=== PATIENT | male | born 1985 | race Caucasian/White ===

== ENCOUNTER 2019-03-27 13:34 | Emergency (ER) | payer OTHER ==
[~2019-03-27] VITALS: Ht 190.5 cm; Wt 81.1 kg
[2019-03-27 14:27] LABS: BASOPHILS % (AUTO) 0.5 % (0-1); EOSINOPHILS % (AUTO) 0.5 % (0-6); LYMPHOCYTES # (AUTO) 2.1 X10'3 (1.1-4.8); MEAN CORPUSCULAR HEMOGLOBIN 31.7 PG (27.0-31.0); MEAN CORPUSCULAR HGB CONC 34.2 g/dL (33.0-36.5); MEAN CORPUSCULAR VOLUME 92.7 FL (78-98); MEAN PLATELET VOLUME 7.9 FL (7.4-10.4); MONOCYTES # (AUTO) 0.8 X10'3 (0-0.9); MONOCYTES % (AUTO) 8.6 % (2-12); NEUTROPHILS % (AUTO) 67.4 % (42-75); PLATELET COUNT 254 X10'3 (140-440); RED BLOOD COUNT 5.06 X10'6 (4.70-6.10); RED CELL DISTRIBUTION WIDTH 13.7 % (11.5-14.5)
[2019-03-27 14:52] LABS: ALANINE AMINOTRANSFERASE 17 U/L (12-78); ALBUMIN 4.2 G/DL (3.4-5.0); ALBUMIN/GLOBULIN RATIO 1.5 (1.1-1.5); ALKALINE PHOSPHATASE 90 IU/L (46-116); ANION GAP 5 (8-16); ASPARTATE AMINO TRANSFERASE 26 U/L (10-37); BILIRUBIN,TOTAL 0.3 MG/DL (0.1-1.0); BLOOD UREA NITROGEN 13 MG/DL (7-18); BUN/CREATININE RATIO 13.5 (5.4-32.0); CALCIUM 8.8 MG/DL (8.5-10.1); CHLORIDE 107 MMOL/L (99-107); CREATININE 0.96 MG/DL (0.60-1.10); GLUCOSE 83 MG/DL (70-104); POTASSIUM 3.7 MMOL/L (3.5-5.1); SODIUM 144 MMOL/L (135-145); TOTAL CARBON DIOXIDE 32.1 MMOL/L (24-32); eGFR 89 ML/MIN
[2019-03-27 14:54] LABS: CLARITY,URINE CLOUDY (Clear); COLOR,URINE STRAW (Yellow); GLUCOSE, URINE NEGATIVE (Neg); KETONES,URINE NEGATIVE (Neg); LEUKOCYTE ESTERASE ,URINE NEGATIVE (Neg); NITRITES, URINE NEGATIVE (Neg); OCCULT BLOOD,URINE NEGATIVE (Neg); PH,URINE 8.5 (4.8-8.0); PROTEIN,URINE NEGATIVE (Neg)
[2019-03-27 15:00] LABS: UA COLLECTION TYPE CLN CATCH MIDSTREAM
[2019-03-27 15:00] LABS: ETHANOL < 0.010 GM/DL (0.0-0.010)
[2019-03-27 15:02] LABS: AMORPHOUS PHOSPHATES 3+; BACTERIA,URINE NONE SEEN /HPF (Neg); MUCUS STRANDS NONE SEEN /LPF (Neg); RBC,URINE 0-2 /HPF (0-2); SPERM FEW /HPF (NEGATIVE); SQUAMOUS EPITHELIAL CELL,UR NONE SEEN /LPF (FEW); WBC,URINE 0-4 /HPF (0-4)
[2019-03-27 15:04] LABS: ACETAMINOPHEN < 2.0 UG/ML (10-30)
[2019-03-27 15:26] LABS: URINE AMPHETAMINE SCREEN NEGATIVE (Neg); URINE BARBITUATE SCREEN NEGATIVE (Neg); URINE BENZODIAZEPINES SCREEN NEGATIVE (Neg); URINE CANNABINOID SCREEN POSITIVE (Neg); URINE COCAINE SCREEN NEGATIVE (Neg); URINE METHADONE SCREEN NEGATIVE (Neg); URINE OPIATE SCREEN NEGATIVE (Neg); URINE PHENCYCLIDINE SCREEN NEGATIVE (Neg)
[2019-03-27] MEDS ORDERED: LORazepam 2 mg/ml vial IM ONE (15:40)
[2019-03-27] MEDS ORDERED: haloperidol lactate 5mg/ml inj IM ONE (15:40)
[2019-03-27] MEDS ORDERED: diphenhydrAMINE 50 mg/ml inj IM ONE (15:40)
--- NOTE | 2019-03-27 15:51 | NUR ---
2 TECH, 2 RN, 2 SAFETY OFFICERS NEED TO ADMIN IM MEDICATIONS. PT IS VERY HOSTILE TOWARDS STAFF.
--- NOTE | 2019-03-27 16:00 | NUR ---
PT IS FIGHTING WITH HIS MOM AND SAYING HE WANTS TO LEAVE
--- NOTE | 2019-03-27 17:00 | NUR ---
PT IS RESTING
--- NOTE | 2019-03-27 17:36 | NUR ---
PACKET SENT TO [facility].
--- NOTE | 2019-03-27 17:51 | NUR ---
PT IS CURRENTLY SLEEPING NO ISSUES AT THIS TIME
--- NOTE | 2019-03-27 18:23 | NUR ---
Pt sleeping in right side; breathing unlabored.
--- NOTE | 2019-03-27 19:59 | NUR ---
Pt awoke inquiring if food at bedside table was his; RN comfirmed, and pt stated "oh good, I am so hungry". RN brought pt fresh water and informed pt of assessment that would occur once pt finished eating. Pt verbalized understanding with a nod and "okay". Pt then states "They gave me Ativan but I'm allergic; it says I'm allergic to caffeine (points to dietary sheet) but that's not true." RN stated vitals were stable and pt is okay post Ativan adminstration, and that a little sleep seemed help his over all mood, since he was being aggressive earlier. Pt stated, "Yeah, I got testy." Then continues to eat.
--- NOTE | 2019-03-27 20:15 | NUR ---
[facility] evaluating pt for hold.
--- NOTE | 2019-03-27 20:30 | NUR ---
Pt is cooperative with 1:1 assessment. States he was brought in by his mother, after being denied care in fall, because "She gets on my nerves and was in my face. This causes me to have too much adrenaline and shizophrenic tendencies." Pt states he only takes Buspar and THC to manage his mental health; but in an arguement with his mother had decided to flush his buspar and lisinopril down the toilet. "So I haven't taken them in a while, since 03/20." Pt states Ativan is not a good drug for him, as "benzos make me feel too jittery and my heart race. I don't like them. That's why I got upset when they injected me earlier-- I was okay with Haldol and Benadryl but not Ativan. I just need to be spoken to like a normal person." Pt states he has been hospitlized 10 years ago but cannot recall the circumstances, and that he only ever felt SI when he witnessed his still born son, about 5 years ago. Pt states he uses bahai as a way to manage his emotions and keep moving in a positive direction. Pt jumped from topic to topic, without prompting, and took multiple redirection to ellicit an answer to the posed question. Pt denies A/VH, SI, anxiety, and depression. He is not presenting with any delusions or paranoias at this time. Pt stopped taking medications 10 years ago because he didn't like how they made him feel and prefers to manage his mood with Buspar and THC. Pts story is incongruent with presentation and report this RN recieved. Mood: "I'm fine."; Affect: Blunted; Behavior: Cooperative; Thought Process: Tangential; Thought Content: Wanting to go home to [place]. Insight: Poor MH Hx (per pt): ADHD, Bipolar, OCD, Tourette Syndrome, PTSD Multiple 5150s prior to 16 yo x1 psych hospitlization at 23 yo Social Hx: Mother (Yajaira, ), Father in [place] Pt states he has apt in [place] Currently needs to fix his car Recreational Drugs: THC, Nicotine Med Hx: Fernando's Esophagus, R Ankle Break in Nov 2018
[2019-03-27] MEDS ORDERED: BUSP10TA11 PO (21:37)
[2019-03-27] MEDS ORDERED: LISI-600 PO (21:37)
--- NOTE | 2019-03-27 22:23 | NUR ---
Pt sleeping on left side, no distress noted. Will continue to monitor.
--- NOTE | 2019-03-27 23:11 | NUR ---
Pt placed on 5150 at 2230 by [facility]. Addendum: 03/27/19 at 2316 by TRES Pt became slightly agitiated regarding learning he was being held, but with answering his questions and assuring we will not inject Ativan, he was able to calm down and go to sleep. RN explained reasoning behind him receiving Ativan earlier and educated that if he remains calm and cooperative those injections would not occur. Pt verbalized understanding.
--- NOTE | 2019-03-27 23:44 | NUR ---
Nurse [facility] [place] [place]. Patient case will be reviewed by their MD for possible acceptance. Patients primary RN will be updated when she returns from her lunch break.
--- NOTE | 2019-03-28 00:33 | NUR ---
Pt sleeping. No distress noted. Will continue to monitor.
--- NOTE | 2019-03-28 02:09 | NUR ---
Pt sleeping in supine position, no distress noted. Will continue to monitor.
--- NOTE | 2019-03-28 04:01 | NUR ---
Pt sleeping on right side. No distress noted.
[2019-03-28] MEDS: NICOTINE POLACRILEX 2 MG LOZENGE BC PRN ×5 (05:40→14:24)
--- NOTE | 2019-03-28 05:47 | NUR ---
Pt awoke requesting juice. Stated "I want to go outside for a smoke", RN offerred pt nicotine lozenge. Pt accepted and stated "I am not taking Ativan anymore." This RN reinforced that there would be no need to administer ativan if patient remains cooperative; pt verbalized understanding, said "Thanks" then went back to sleep on left side.
--- NOTE | 2019-03-28 06:37 | NUR ---
Pt is resting in bed peacefully in the supine position. No distress observed, will continue to monitor.
[2019-03-28] MEDS: busPIRone 5mg tablet PO SCH ×2 (08:00→08:27)
[2019-03-28] MEDS: lisinopril 10 MG tablet PO SCH ×2 (08:00→08:27)
--- NOTE | 2019-03-28 08:22 | NUR ---
Patient is sitting at edge of bed, eating breakfast, no distress observed. Requests a nicotine losenge.
--- NOTE | 2019-03-28 08:49 | NUR ---
Spoke to Crystal at [facility]. Patient has been accepted with an estimated pick up operator time in the afternoon. This was explained to patient. Patient verbalized understanding.
--- NOTE | 2019-03-28 09:51 | NUR ---
Patient is sitting in high fowlers reading the bible. No distress observed.
--- NOTE | 2019-03-28 10:43 | NUR ---
Patient requests to speak to a electric power machine operator. Called and LMOM for return call from electric power machine operator.
--- NOTE | 2019-03-28 11:05 | NUR ---
Cut Out Press Operator at bedside to speak with patient. Pt calm and cooperative at this time.
--- NOTE | 2019-03-28 11:53 | NUR ---
Pt is sitting in the high fowlers position reading the bible. He requests to go outside. Pt is informed that this is not an option due to the fact that he is currently on a hold. Pt verbalized understanding.
--- NOTE | 2019-03-28 12:16 | NUR ---
Patient is seen ambulating to the bathroom. No distress observed.
--- NOTE | 2019-03-28 14:35 | NUR ---
Pt discharged from the unit to be transferred to [facility]. All items were inventoired and in patient's possession at time of discharge. He was pleasant and cooperative with care Addendum: 03/28/19 at 1527 by STARLA He was ambulating self, accompanied by his mother, security and [facility] motorcycle delivery driver, Nino. Denies A/VH, SI or HI. He is ambulating self, no distress observed. Nicotine replacement given. Plan of care discussed with patient and mother, questions were answered and patient verbalized understanding.
[2019-03-28 15:35] VITALS: BP 120/74
== END 2019-03-28 14:35 ==
LOC: ER 13:34
DX: F29 Unspecified psychosis not due to a substance or known physiological condition (principal); R45.1 Restlessness and agitation; Z88.8 Allergy status to other drugs, medicaments and biological substances
CPT/HCPCS: 36415; 80053; 80305; 80320; 80329; 81001; 84443; 85025; 96372; 99285; J1200; J1630; J2060

== ENCOUNTER 2022-01-24 23:01 | Emergency (ER) | payer MEDICAID ==
[~2022-01-24] VITALS: Ht 190.5 cm; Wt 81.8 kg
[~2022-01-24 23:01] MED LIST: BUSP10TA11 PO; LISI20TA28 PO
[2022-01-24 23:20] VITALS: BP 136/76
== END 2022-01-25 00:09 | disposition left against medical advice (07) ==
LOC: ER 23:01
DX: Z04.6 Encounter for general psychiatric examination, requested by authority (principal); Z53.21 Procedure and treatment not carried out due to patient leaving prior to being seen by health care provider

== ENCOUNTER 2023-04-27 15:36 | Emergency (ER) | payer MEDICAID ==
[~2023-04-27] VITALS: Ht 190.5 cm; Wt 88.3 kg
[2023-04-27 15:50] VITALS: BP 126/83; PULSE 99; RESP 18; TEMP 99.3; O2SAT 96
== END 2023-04-27 16:42 | disposition home or self-care (01) ==
LOC: ER 15:37
DX: F30.8 Other manic episodes (principal)
CPT/HCPCS: 99281